=== PATIENT | female | born 2000 | race African-American/Black ===

== ENCOUNTER 2024-04-03 15:21 | Emergency (ER) | payer MEDICAID, OTHER ==
[~2024-04-03] VITALS: Ht 157.5 cm; Wt 51.0 kg
[2024-04-03 15:31] VITALS: BP 105/69; PULSE 54; RESP 16; TEMP 98; O2SAT 100
== END 2024-04-03 16:48 | disposition home or self-care (01) ==
LOC: ER 15:21
DX: S09.90XA Unspecified injury of head, initial encounter (principal); W17.89XA Other fall from one level to another, initial encounter; Y93.89 Activity, other specified; Y92.89 Other specified places as the place of occurrence of the external cause; Y99.8 Other external cause status
CPT/HCPCS: 99281